=== PATIENT | female | born 1950 | race Caucasian/White ===

== ENCOUNTER 2022-05-26 08:10 | Emergency (ER) | payer MEDICARE, BC ==
[~2022-05-26] VITALS: Ht 165.1 cm; Wt 7366.0 kg
[2022-05-26 08:45] VITALS: BP 134/78
== END 2022-05-26 08:48 | disposition home or self-care (01) ==
LOC: ER 08:31
DX: T17.898A Other foreign object in other parts of respiratory tract causing other injury, initial encounter (principal); X58.XXXA Exposure to other specified factors, initial encounter; Y93.89 Activity, other specified; Y92.9 Unspecified place or not applicable; Z88.2 Allergy status to sulfonamides; Z86.718 Personal history of other venous thrombosis and embolism
CPT/HCPCS: 99283